=== PATIENT | male | born 1965 | race Caucasian/White ===

== ENCOUNTER 2020-02-09 07:01 | Emergency (ER) | payer MEDICAID, OTHER ==
[~2020-02-09] VITALS: Ht 180.3 cm; Wt 77.1 kg
--- NOTE | 2020-02-09 07:06 | NUR ---
ED Nurse Note: Patient brought in by ambulance RA 59 from home with c/o "something stuck in the back of my throat" onset this am. Per EMS no obstruction was seen. Pt stated he feels something during swallowing. Pt denies SOB//CP, N/V, fever and chills. Pt is anxious and was provided water to drink with ERMDs approval. Pt is AAOX4 and ambulatory
--- NOTE | 2020-02-09 07:17 | NUR ---
HAND-OFF: Report given to EL VALADEZ .
--- NOTE | 2020-02-09 07:21 | Emergency Room Report ---
History of Present Illness General Chief Complaint: Sore Throat Source: Patient, EMS Present Illness HPI Patient presents with a foreign body feeling in his throat. He feels like blocking off his airway when he tries to swallow. It locks forward when he tries to hold it out. Denies fevers or chills. Denies productive cough. He tried to self induce vomiting but his stomach was empty. Patient has had scarring of his esophagus and also destruction of his lower teeth. Patient also suffers from anxiety. The feeling in the back of his throat is causing him to be extremely anxious. Patient denies exposure to Covid positive contacts. No chest pain, palpitations, nausea, vomiting, diarrhea, dysuria, abdominal pain, shortness of breath, joint pain, rashes, depression, visual changes, d izziness, headache. 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 Reviewed Nursing Documentation: PMH: Agreed; PSxH: Agreed Nursing Documentation-PMH Hx Hypertension: Yes Review of Systems All Other Systems: negative except mentioned in HPI Physical Exam Vital Signs Date Time Temp Pulse Resp B/P (MAP) Pulse Ox O2 Delivery O2 Flow Rate FiO2 02/09/20 07:00 97.2 96 18 186/90 (122) 98 Room Air Sp02 EP Interpretation: reviewed, normal General Appearance: well appearing, no apparent distress - Anxious, GCS 15, non-toxic Head: normocephalic Eyes: bilateral eye normal inspection, bilateral eye PERRL, bilateral eye EOMI ENT: normal pharynx, uvula midline - And swollen and edematous, moist mucus membranes, other - No airway compromise Neck: supple Respiratory: lungs clear, normal breath sounds Cardiovascular #1: regular rate, rhythm Cardiovascular #2: 2+ radial (R) Gastrointestinal: normal inspection Musculoskeletal: back normal, normal range of motion, gait/station normal Neurologic: alert, oriented x3 Medical Decision Making Diagnostic Impression: Primary Impression: Uvulitis Additional Impression: Anxiety ER Course Patient presents with foreign body sensation in his upper throat. Differential includes epiglottitis, uvulitis, pharyngitis and foreign body. Based on physical exam this appears to be uvulitis. Treatment will be with IM dexamethasone and gargling with viscous lidocaine. AP and lateral soft tissue neck will be obtained. Improved with viscous lidocaine. A&P and lateral soft tissue neck without masses. Patient with increased anxiety as viscous lidocaine started to wear off. Small dose repeated. Improved with treatment. Discussed treatment plan. No medical emergency at this time. Patient stable for outpatient observation and treatment. Other X-Ray Diagnostic Results Other X-Ray Diagnostic Results : X-Ray ordered: Soft tissue neck # of Views/Limited Vs Complete: 3 View Indication: Other EP Interpretation: Yes Interpretation: no dislocation, no soft tissue swelling, no fractures Impression: No acute disease Electronically Signed by: Electronically signed by Sagar Cespedes MD Last Vital Signs Date Time Temp Pulse Resp B/P (MAP) Pulse Ox O2 Delivery O2 Flow Rate FiO2 02/09/20 08:55 98.0 89 20 155/74 100 Room Air Status: improved Disposition: HOME, SELF-CARE Condition: Improved Scripts Hydroxyzine Pamoate (VISTARIL) 25 Mg Capsule 25 MG PO Q8HR, #8 CAP Prov: Sagar Cespedes MD 02/09/20 Lidocaine HCl 2% Viscous (Lidocaine HCl 2% Viscous) 100 Ml Solution 5 ML ORAL QID PRN for throat pain, #100 ML mix with equal amount of water - gargle and swallow Prov: Sagar Cespedes MD 02/09/20 Sagar Cespedes MD Feb 09, 2020 07:21
[2020-02-09] MEDS ORDERED: Lidocaine 2% Visc 15ml soln ORAL ONE ×2 (07:30→08:30)
[2020-02-09 07:38] VITALS: BP 165/86
[2020-02-09] MEDS ORDERED: LIDOCAINE VISC100 ML ORAL (08:32)
--- NOTE | 2020-02-09 08:36 | Diagnostic Imaging Report ---
EXAM: XR Soft Tissue Neck CLINICAL HISTORY: FB TECHNIQUE: Frontal and lateral views of the soft tissues of the neck. COMPARISON: No relevant prior studies available. FINDINGS: Airway: Unremarkable. No abnormal narrowing. Bones/joints: Unremarkable. Soft tissues: Unremarkable. No abnormal soft tissue prominence. Normal epiglottis. No radiopaque foreign body. IMPRESSION: Normal neck x-rays.
[2020-02-09] MEDS ORDERED: VISTARIL25 M1 PO (08:49)
[2020-02-09 08:55] VITALS: BP 155/74
--- NOTE | 2020-02-09 08:55 | NUR ---
ER DISCHARGE NOTE: Patient is cleared to be discharged per ERMD, pt is aox4, on room air, with stable vital signs. pt was given dc and prescription instructions, pt was able to verbalize understanding, pt id band removed. pt is able to ambulate with steady gait. pt took all belongings.
== END 2020-02-09 09:00 | disposition home or self-care (01) ==
LOC: EDBD 07:01 → EMR 07:15
DX: K12.2 Cellulitis and abscess of mouth (principal); F41.9 Anxiety disorder, unspecified; I10 Essential (primary) hypertension
CPT/HCPCS: 70360; 82962; 96372; J1100; Z7502; 99283